=== PATIENT | male | born 1995 | race Caucasian/White ===

== ENCOUNTER 2020-12-05 09:24 | Emergency (ER) | payer MEDICAID, SELFPAY ==
[~2020-12-05] VITALS: Ht 175.3 cm; Wt 93.0 kg
[2020-12-05 09:32] VITALS: BP_SYST 125
--- NOTE | 2020-12-05 09:35 | NUR ---
TRAIGED AND PLACED IN THE TENT
--- NOTE | 2020-12-05 09:45 | NUR ---
PT ARRIVES FROM HOME W/ C/O SOB DURING THE NIGHT ROMA ONLY AND SORE THROAT. PT HAS RECEIVED BOTH COVID VACCINES. PT IS SPEAKING IN COMPLETE SENTENCES. CURRENT O2 SAT IS 97% ON RA
--- NOTE | 2020-12-05 09:50 | NUR ---
ER at bedside examining patient.
--- NOTE | 2020-12-05 10:10 | NUR ---
COVID SWAB COLLECTED AND SENT TO THE LAB
[2020-12-05] MEDS ORDERED: ALBU8.5H8 INH (11:40)
[2020-12-05 11:46] VITALS: BP_SYST 125
--- NOTE | 2020-12-05 11:47 | NUR ---
Patient given written and verbal discharge instructions and verbalizes understanding. ER MD discussed with patient the results and treatment provided. Patient in stable condition. ID arm band removed. Rx of ALBUTEROL given. Patient educated on pain management and to follow up with PMD. Pain Scale 0/10. Opportunity for questions provided and answered. Medication side effect fact sheet provided.
== END 2020-12-05 11:47 | disposition home or self-care (01) ==
LOC: SED 09:24
DX: J98.01 Acute bronchospasm (principal); Z20.822 Contact with and (suspected) exposure to COVID-19
CPT/HCPCS: 36415; 71045; 99284

== ENCOUNTER 2021-04-19 10:32 | Emergency (ER) | payer MEDICAID, SELFPAY ==
[~2021-04-19] VITALS: Ht 175.3 cm; Wt 95.3 kg
[~2021-04-19 10:32] MED LIST: ALBU8.5H8 INH
[2021-04-19 10:40] VITALS: BP_SYST 111
--- NOTE | 2021-04-19 10:40 | NUR ---
Patient to ER tent for evaluation.
--- NOTE | 2021-04-19 11:00 | NUR ---
pt. came in with complaints of cough, N/V/D, fever and body aches since this weekend
--- NOTE | 2021-04-19 11:23 | NUR ---
LAKESHIA Dorantes at bedside examining patient.
--- NOTE | 2021-04-19 13:09 | NUR ---
Patient given written and verbal discharge instructions and verbalizes understanding. Dr. Paz discussed with patient the results and treatment provided. Patient in stable condition. ID arm band removed. Patient educated on pain management and to follow up with PMD. Pain Scale 0. Opportunity for questions provided and answered.
[2021-04-19 13:10] VITALS: BP_SYST 109
== END 2021-04-19 13:10 | disposition home or self-care (01) ==
LOC: SED 10:32
DX: U07.1 COVID-19 (principal); J45.909 Unspecified asthma, uncomplicated; Z79.899 Other long term (current) drug therapy
CPT/HCPCS: 36415; 71045; 86710; 99284

== ENCOUNTER 2021-11-25 22:51 | Emergency (ER) | payer MEDICAID, OTHER ==
[~2021-11-25] VITALS: Ht 175.3 cm; Wt 95.3 kg
--- NOTE | 2021-11-25 23:09 | NUR ---
Pt to ED w/ c/o left gluteal pain s/p "possible insect bite". Pt states pain 10/10 starting yesterday. Upon examination inner left buttcheek is red and tender to palpation w/ puss oozing from site. Pt staets he has had fevers, body aches, chills, and lightheadedness x 1 day. Pt has mild skin pallor. Respirations even and unlabored. Pt states last took 500 mg tylenol at 1700.
[2021-11-25 23:11] VITALS: BP_SYST 120
--- NOTE | 2021-11-25 23:34 | NUR ---
PT TO BED 2. Pt placed on trust manager assistant and pulse oximetry. Report given to DEVYN Cano.
--- NOTE | 2021-11-25 23:45 | NUR ---
Lab at bedside.
--- NOTE | 2021-11-25 23:48 | NUR ---
Assisting primary nurse Jerome SHEPARD with patient care
--- NOTE | 2021-11-25 23:50 | NUR ---
Patient presents to ER for c/o possible abcess on left buttock x 4days. Patient A/Ox4, VSS, ambulatory, resp even and unlabored. Patient states "I noticed this about 4 days ago, but it started leaking today and thats why I came in to be checked out." Nad noted at this time. Will continue to monitor.
--- NOTE | 2021-11-26 00:20 | NUR ---
LAKESHIA Young at bedside.
[2021-11-26] MEDS ORDERED: LIDOCAINE/EPI 1% 1:100000 20 ML VIAL INJ ONE (00:30)
[2021-11-26] MEDS ORDERED: IBUPROFEN 800 MG TABLET PO ONE (00:30)
[2021-11-26] MEDS ORDERED: SULFAMETHOXAZOLE/TRIMETHOPR DS 1 TABLET PO ONE (00:30)
[2021-11-26 00:35] LABS: BASOPHILS % (AUTO) 0.3 % (0.0-2.0); EOSINOPHILS % (AUTO) 0.1 % (0.0-4.0); HEMOGLOBIN 12.9 g/dL (14.0-18.0); LYMPHOCYTES # (AUTO) 1.9 K/uL (1.0-5.5); LYMPHOCYTES % (AUTO) 13.5 % (20.5-51.5); MEAN CORPUSCULAR HEMOGLOBIN 27 pg (27-31); MEAN CORPUSCULAR HGB CONC 34 % (32-36); MEAN CORPUSCULAR VOLUME 80 fL (79.0-98.0); MONOCYTES # (AUTO) 1.1 K/uL (0.0-1.0); MONOCYTES % (AUTO) 7.6 % (1.7-9.3); NEUTROPHILS # (AUTO) 10.9 K/uL (1.8-7.7); NEUTROPHILS % (AUTO) 78.5 % (40.0-70.0); PLATELET COUNT (AUTO) 240 K/uL (130-430); RED BLOOD CELL COUNT(AUTO) 4.76 MIL/uL (4.2-6.2); RED CELL DISTRIBUTION WIDTH 14.6 % (9.0-15.0); WHITE BLOOD COUNT (AUTO) 13.9 K/uL (4.8-10.8)
[2021-11-26 00:54] LABS: CALCIUM 9.3 mg/dL (8.4-11.0); CREATININE 1.26 mg/dL (0.55-1.30); POTASSIUM 3.9 mmol/L (3.5-5.1)
[2021-11-26] MEDS ORDERED: EPINEPHRINE HCL/PF 1 MG/ML AMP ONE (01:27)
[2021-11-26] MEDS ORDERED: methylPREDNISolone SOD SUCC/PF 62.5 MG/ML VIAL ONE (01:28)
[2021-11-26] MEDS ORDERED: FAMOTIDINE PF 20 MG/2 ML VIAL ONE (01:29)
[2021-11-26] MEDS ORDERED: methylPREDNISolone SOD SUCC/PF 62.5 MG/ML VIAL IVP ONE (01:30)
[2021-11-26] MEDS ORDERED: FAMOTIDINE PF 20 MG/2 ML VIAL IVP ONE (01:30)
[2021-11-26] MEDS ORDERED: EPINEPHRINE HCL/PF 1 MG/ML AMP IM ONE (01:30)
[2021-11-26] MEDS ORDERED: NACL 0.9% 1,000 ML IV ONE (01:30)
[2021-11-26] MEDS ORDERED: DIPHENHYDRAMINE INJ 50 MG/ML VIAL IVP ONE (01:30)
[2021-11-26] MEDS ORDERED: IPRATROPIUM/ALBUTEROL SULFATE 3 ML AMPUL.NEB (DUONEB) INH ONE (01:30)
--- NOTE | 2021-11-26 01:30 | NUR ---
Primary nurse Jerome notified of new onset of cough; primary nurse visualized assessing patient.
[2021-11-26] MEDS ORDERED: ALBUTEROL SULFATE 0.083% 2.5 MG/3 ML VIAL.NEB INH ONE (01:31)
--- NOTE | 2021-11-26 01:45 | NUR ---
RN came to bedside to assist primary RN Jerome with pt allergic reaction. Pt noted SOB and tachycardic. Assisted primary RN with medicating pt with meds ordered by Dr. Young (see MAR) and pt given breathing tx by RT. Pt noted with immediate relief of symptoms.
[2021-11-26] MEDS ORDERED: EPIN0.3P3 IM (05:39)
[2021-11-26] MEDS ORDERED: PRED20TA PO (05:39)
[2021-11-26] MEDS ORDERED: CLIN-142 PO (05:39)
[2021-11-26 06:00] VITALS: BP_SYST 110
--- NOTE | 2021-11-26 06:00 | NUR ---
Patient given written and verbal discharge instructions and verbalizes understanding. ER MD discussed with patient the results and treatment provided. Patient in stable condition. ID arm band removed. IV catheter removed intact and dressing applied, no active bleeding. Rx for abx given. Patient educated on pain management and to follow up with PMD. Pain Scale 0/10. Opportunity for questions provided and answered. Medication side effect fact sheet provided. Patient A/Ox4, VSS, ambulatory, resp even and unlabored. No resp distress noted at this time. Patient left in stable condition. NAD noted at this time.
--- NOTE | 2021-11-29 15:46 | NUR ---
11/26/21 Registry 72 hung Normal Saline, 1L bag, start time of 0147 and end time 0247.
--- NOTE | 2021-12-01 10:32 | NUR ---
RECEIVED +BLOOD CULTURES FROM ZANE IN LAB, DISCUSSED CASE WITH DR CHANEY AND DR CHANEY SPOKE WITH PT. PT STATES SHE IS FEELING BETTER. NO ACTIONS NEEDED PER DR CHANEY.
== END 2021-11-26 05:52 | disposition home or self-care (01) ==
LOC: SED 22:51
DX: L02.31 Cutaneous abscess of buttock (principal); L03.317 Cellulitis of buttock; T78.2XXA Anaphylactic shock, unspecified, initial encounter; R50.9 Fever, unspecified; J45.909 Unspecified asthma, uncomplicated; Z79.899 Other long term (current) drug therapy
CPT/HCPCS: 80048; 85025; 87040; 36415; 93005; 94640; 99285; 83605; 96361; 96374; 96375; 96372; J1200; J0171; J3490; J2930; J7613; J7030

== ENCOUNTER 2023-09-28 05:07 | Emergency (ER) | payer SELFPAY ==
[~2023-09-28] VITALS: Ht 175.3 cm; Wt 117.9 kg
[~2023-09-28 05:07] MED LIST changes: +CLIN-142 PO; +EPIN0.3P3 IM; +PRED20TA PO
[2023-09-28 05:09] VITALS: BP_SYST 148; PULSE 118; RESP 20; TEMP 98.1; O2SAT 98
[2023-09-28] MEDS ORDERED: ALBUTEROL SULFATE 0.083% 2.5 MG/3 ML VIAL.NEB INH ONE (05:09)
[2023-09-28] MEDS: ALBUTEROL SULFATE 0.083% 2.5 MG/3 ML VIAL.NEB INH ONE (05:15)
[2023-09-28] MEDS: methylPREDNISolone SOD SUCC/PF 62.5 MG/ML VIAL IVP ONE (05:20)
[2023-09-28] MEDS: MAGNESIUM SULFATE 50 ML IV ONE (05:21)
[2023-09-28] MEDS: NACL 0.9% 1,000 ML IV ONE (05:21)
[2023-09-28] MEDS ORDERED: ALBMDI INH (05:49)
[2023-09-28] MEDS ORDERED: PRED20TA PO (05:49)
[2023-09-28] MEDS ORDERED: FLUT1DIS3 INH (05:50)
[2023-09-28 07:25] VITALS: BP_SYST 126; PULSE 80; RESP 18; TEMP 98; O2SAT 67
== END 2023-09-28 07:25 | disposition home or self-care (01) ==
LOC: SED 05:07
DX: J45.901 Unspecified asthma with (acute) exacerbation (principal); Z88.2 Allergy status to sulfonamides; Z79.899 Other long term (current) drug therapy; Z79.2 Long term (current) use of antibiotics
CPT/HCPCS: 96365; 96375; 99284; J2930; J3475